=== PATIENT | female | born 1995 ===

== ENCOUNTER → 2017-11-05 | Outpatient (CLI) | payer OTHER ==
[~2017-11-05] MED LIST: IBUP800 PO; Percocet 5-3251 EACH PO
== END ==
LOC: LAB SHORT 09:59 → LAB 09:59
DX: Z34.81 Encounter for supervision of other normal pregnancy, first trimester (principal)
CPT/HCPCS: 87081; 87653

== ENCOUNTER 2017-11-24 03:57 | Inpatient (IN) | payer OTHER ==
[~2017-11-24] VITALS: Ht 162.6 cm; Wt 116.8 kg
[2017-11-24 04:43] LABS: BASOPHILS ABSOLUTE AUTO 0.02 K/mm3 (0.00-0.23); BASOPHILS PERCENT AUTO 0 % (0-2); EOSINOPHILS ABSOLUTE AUTO 0.14 K/mm3 (0.00-0.68); EOSINOPHILS PERCENT AUTO 1 % (0-6); Hematocrit 35.6 % (33.0-51.0); Hemoglobin 12.1 g/dL (11.5-16.0); IMMATURE GRAN ABSOLUTE AUTO 0.07 K/mm3 (0.00-0.10); IMMATURE GRAN PERCENT AUTO 1 % (0-1); LYMPHOCYTES ABSOLUTE AUTO 2.43 K/mm3 (0.84-5.20); LYMPHOCYTES PERCENT AUTO 20 % (21-46); MONOCYTES ABSOLUTE AUTO 0.98 K/mm3 (0.16-1.47); MONOCYTES PERCENT AUTO 8 % (4-13); Mean Corpuscular HGB 30.9 pg (26.0-34.0); Mean Corpuscular Volume 91 fL (80-100); Mean Platelet Volume 10.5 fL (9.1-12.4); NEUTROPHILS ABSOLUTE AUTO 8.53 K/mm3 (1.96-9.15); NEUTROPHILS PERCENT AUTO 70 % (41-73); Platelet Count 255 K/mm3 (150-400); RDW Standard Deviation 39.8 fL (35.1-46.3); Red Blood Cell Count 3.91 M/mm3 (3.80-5.20); White Blood Cell Count 12.17 K/mm3 (4.00-11.30)
[2017-11-24] MEDS ORDERED: Verotin-Gr Cap1 EACH PO (07:23)
[2017-11-24] MEDS ORDERED: ACYC400 PO (07:27)
[2017-11-24 16:57] LABS: U Amphetamine Screen Not Detected; U Barbituate Screen Not Detected; U Benzodiazapine Screen Not Detected; U Buprenorphine Screen Not Detected; U Cannabinoids Screen DETECTED; U Cocaine Screen Not Detected; U Methadone Screen Not Detected; U Methamphetamine Screen Not Detected; U Opiates Screen Not Detected; U Oxycodone Screen Not Detected; U Phencyclidine Screen Not Detected; U Propoxyphene Screen Not Detected
[2017-11-25 05:26] LABS: Hematocrit 30.9 % (33.0-51.0); Hemoglobin 10.3 g/dL (11.5-16.0); Mean Corpuscular HGB 31.2 pg (26.0-34.0); Mean Corpuscular HGB Conc 33.3 g/dL (31.5-36.5); Mean Platelet Volume 10.9 fL (9.1-12.4); Platelet Count 237 K/mm3 (150-400); RDW Coefficient Variation 12.4 % (11.7-14.2); RDW Standard Deviation 42.6 fL (35.1-46.3); White Blood Cell Count 12.24 K/mm3 (4.00-11.30)
[2017-11-25 05:28] LABS: Mean Corpuscular Volume 94 fL (80-100)
[2017-11-25] MEDS ORDERED: IBUP800 (10:08)
[2017-11-25] MEDS ORDERED: DOCU100 (10:08)
== END 2017-11-25 14:10 | disposition home or self-care (01) | DRG 774 ==
LOC: OBS 03:57 → BC 03:57 → OBS 04:11 → BC 04:14
PROVIDERS: Advanced Practice Midwife
PROC: 10E0XZZ Delivery of Products of Conception, External Approach (ICD-10-PCS; principal; 2017-11-24)
PROC: 0HQ9XZZ Repair Perineum Skin, External Approach (ICD-10-PCS; 2017-11-24)
PROC: 00HU33Z Insertion of Infusion Device into Spinal Canal, Percutaneous Approach (ICD-10-PCS; 2017-11-24)
PROC: 3E0R3BZ Introduction of Anesthetic Agent into Spinal Canal, Percutaneous Approach (ICD-10-PCS; 2017-11-24)
DX: O98.32 Other infections with a predominantly sexual mode of transmission complicating childbirth (principal); O72.1 Other immediate postpartum hemorrhage; A60.00 Herpesviral infection of urogenital system, unspecified; O70.0 First degree perineal laceration during delivery; O99.214 Obesity complicating childbirth; E66.9 Obesity, unspecified; Z68.37 Body mass index [BMI] 37.0-37.9, adult; Z3A.38 38 weeks gestation of pregnancy; Z79.899 Other long term (current) drug therapy; Z87.891 Personal history of nicotine dependence; Z86.59 Personal history of other mental and behavioral disorders; Z37.0 Single live birth
CPT/HCPCS: 36415; 51702; 85025; 85027; J1885; J2210; J2405; J2590; J3010; J7120

== ENCOUNTER 2023-04-20 16:56 | Emergency (ER) | payer OTHER ==
[~2023-04-20] VITALS: Ht 162.6 cm; Wt 145.2 kg
[~2023-04-20 16:56] MED LIST changes: +ACYC400 PO; +DOCU100; +IBUP800; +Verotin-Gr Cap1 EACH PO
[2023-04-20 17:01] VITALS: BP 150/92
[2023-04-20] MEDS ORDERED: Lisinopril2.5 MG PO (17:03)
[2023-04-20] MEDS ORDERED: BUSPIRONE HCL10 M6 PO (17:03)
[2023-04-20] MEDS ORDERED: ARIPIPRAZOLE10 M4 PO (17:03)
[2023-04-20] MEDS ORDERED: ATENOLOL25 MG PO (17:03)
[2023-04-20] MEDS ORDERED: LAMO100 (17:15)
[2023-04-20] MEDS ORDERED: AMOCLA875 PO (17:33)
== END 2023-04-20 17:57 | disposition home or self-care (01) ==
LOC: ER 16:56
DX: K02.9 Dental caries, unspecified (principal); Z79.899 Other long term (current) drug therapy; E66.9 Obesity, unspecified
CPT/HCPCS: 99282; A9270